=== PATIENT | female | born 1960 | race Caucasian/White ===

== ENCOUNTER 2017-03-19 08:30 | Emergency (ER) | payer OTHER ==
[~2017-03-19] VITALS: Wt 82.0 kg
[2017-03-19] MEDS ORDERED: HYDROCODONE/APAP (5/325) TAB PO ONE (09:00)
--- NOTE | 2017-03-19 09:23 | ERD ---
ER Documentation Chief Complaint Date/Time DATE: 03/19/17 TIME: 09:20 Chief Complaint FEVER, HEADACHE, BODYACHES, BACK PAIN HPI This a 56-year-old female who presents the emergency department today with her grandson complaining of headache for "a long time". States she has a history of stroke 20 years ago. States that she occasionally takes propanolol for pain however it is not helping. States the pain is in the back of her head. States she has some dizziness. Denies any blurred vision, nausea or vomiting. She also has some low back pain, left shoulder pain and left knee pain. States she has pain with ambulation. States that she fell 2 months ago and has had shoulder pain since that time. Denies any fevers or chills, dysuria, loss of bowel or bladder control. ROS All systems reviewed and are negative except as per history of present illness. Medications Home Meds Active Scripts Naproxen* (Naprosyn*) 500 Mg Tablet, 500 MG PO BID Y for PAIN AND/OR INFLAMMATION, #30 TAB Prov:MARGARITO GLASGOW PA-C 03/19/17 Tramadol HCl (Tramadol HCl) 50 Mg Tablet, 50 MG PO Q4 Y for PAIN, #20 TAB Prov:MARGARITO GLASGOW PA-C 03/19/17 Cephalexin* (Keflex*) 500 Mg Capsule, 500 MG PO QID for 7 Days, CAP Prov:MARGARITO GLASGOW PA-C 03/19/17 Allergies Allergies: Coded Allergies: No Known Allergy (Unverified , 06/02/14) PMhx/Soc History of Surgery: No Anesthesia Reaction: No Hx Neurological Disorder: No Hx Cardiac Disorders: No Hx Psychiatric Problems: No Hx Miscellaneous Medical Probl: Yes Hx Alcohol Use: No Hx Substance Use: No Hx Tobacco Use: No Physical Exam Vitals Vital Signs Date Time Temp Pulse Resp B/P Pulse Ox O2 Delivery O2 Flow Rate FiO2 03/19/17 08:35 99.9 93 18 113/64 98 Physical Exam Const: Obese, no acute distress Head: Atraumatic Eyes: Normal Conjunctiva. PERRLA. EOM intact ENT: Normal External Ears, Nose and Mouth. Neck: Full range of motion..~ No meningismus. Resp: Clear to auscultation bilaterally Cardio: Regular rate and rhythm, no murmurs Abd: Soft, non tender, non distended. Normal bowel sounds Skin: No petechiae or rashes Back: Lumbar spine midline tenderness. Unable to assess range of motion secondary to pain. Ext: Left knee with no obvious deformity. No effusion. No ecchymosis. Full active range of motion. Pain with ambulation. Pulses 2+. Distal neurovascularly intact. Left shoulder with no obvious deformity. No effusion. No ecchymosis. Pain with full active range of motion. Pulses 2+. Distal neurovascularly and Neur: Awake and alert. Cranial nerves II through XII intact. No gait ataxia peer Psych: Normal Mood and Affect Results 24 hrs Laboratory Tests Test 03/19/17 10:48 Bedside Urine pH (LAB) 5.5 Bedside Urine Protein (LAB) 1+ Bedside Urine Glucose (UA) Negative Bedside Urine Ketones (LAB) Negative Bedside Urine Blood Trace-intact Bedside Urine Nitrite (LAB) Negative Bedside Urine Leukocyte Esterase (L 2+ Current Medications Medications (Trade) Dose Ordered Sig/Sreekanth Route PRN Reason Start Time Stop Time Status Last Admin Dose Admin Acetaminophen/ Hydrocodone Bitart ([place] (5/325)) 1 tab ONCE ONCE PO 03/19/17 09:00 03/19/17 09:03 DC 03/19/17 09:13 Ketorolac Tromethamine (Toradol) 30 mg ONCE STAT IM 03/19/17 10:25 03/19/17 10:27 DC 03/19/17 10:39 DIAGNOSTIC IMAGING REPORT Patient: QUYEN ELIZALDE : 1960 Age: 56 Sex: F [id number] DOS: 03/19/17 0000 Ordering MD: MARGARITO GLASGOW PA-C Location: [facility] Room/Bed: PROCEDURE: CT head without intravenous contrast CLINICAL INDICATION: Headache. Concern for stroke. COMPARISON: None relevant listed. TECHNIQUE: Axial CT images from skull base to vertex with coronal and sagittal reformats. DOSE: The estimated administered radiation dose was CTDI vol = 44 mGy. DLP = 630 mGy-cm. One or more of the following dose reduction techniques were used: automated exposure control, adjustment of the mA and/or kV according to patient size, or use of iterative reconstruction. FINDINGS: Parenchyma: No acute hemorrhage, large territorial infarction, or mass. Ventricles: No ventriculomegaly or ventricular effacement. Extra-axial spaces: No herniation or midline shift. Paranasal sinuses: Mild paranasal sinus mucosal thickening. Mastoids and middle ears: Clear. Visualized orbits: Normal. Vessels: No calcified atherosclerotic arterial plaque identified. Bones: Normal. Extracranial soft tissues: Normal. Additional comment: None. IMPRESSION: No acute intracranial abnormality. RPTAT: PP Real Marte Physician Date Time Electronically viewed and signed by Real Marte Physician on 03/19/2017 09: 49 LG/ CC: MARGARITO GLASGOW PA-C DIAGNOSTIC IMAGING REPORT Patient: QUYEN ELIZALDE : 1960 Age: 56 Sex: F MR #: [id number] DOS: 03/19/17 0000 Ordering MD: MARGARITO GLASGOW PA-C Location: [facility] Room/Bed: PROCEDURE: Left knee x-ray CLINICAL INDICATION: Fall, pain TECHNIQUE: AP, oblique and cross-table lateral views of the left knee were obtained. COMPARISON: None FINDINGS: There is normal mineralization. No acute fracture or dislocation is seen. The joint spaces are normal. There is no joint effusion. There is no significant soft tissue swelling. IMPRESSION: No acute osseous abnormality. Physician Aldair Date Time Electronically viewed and signed by Physician Aldair on 03/19/2017 10: 15 CS/ CC: MARGARITO GLASGOW PA-C DIAGNOSTIC IMAGING REPORT Patient: QUYEN ELIZALDE : 1960 Age: 56 Sex: F MR #: [id number] DOS: 03/19/17 0000 Ordering MD: MARGARITO GLASGOW PA-C Location: [facility] Room/Bed: PROCEDURE: XR Lumbar Spine. CLINICAL INDICATION: fall 2 mos ago. pain TECHNIQUE: AP, and lateral views of the lumbar spine were obtained. COMPARISON: No prior studies are available for comparison. FINDINGS: There is normal vertebral mineralization. No fracture or subluxation is seen. Mild L3-4, L4-5 disk height loss and small anterior osteophytes are seen. There is mild L4-5 anterolisthesis. The posterior elements are unremarkable. The soft tissues appear normal. IMPRESSION: No evidence of fracture. Mild degenerative changes. Physician Aldair Date Time Electronically viewed and signed by Cal Ayala Physician on 03/19/2017 10: 18 CS/ CC: MARGARITO GLASGOW PA-C DIAGNOSTIC IMAGING REPORT Patient: QUYEN ELIZALDE : 1960 Age: 56 Sex: F MR #: [id number] DOS: 03/19/17 0000 Ordering MD: MARGARITO GLASGOW PA-C Location: [facility] Room/Bed: PROCEDURE: XR left shoulder. CLINICAL INDICATION: fall 2 mos ago. pain TECHNIQUE: AP, Internal and external rotation, transscapular views of the left shoulder were performed. COMPARISON: None. FINDINGS: There is normal osseous mineralization and alignment. No acute fracture or osseous lesion is identified. There are normal joints without evidence of arthritis or dislocation. The soft tissues are unremarkable. IMPRESSION: Unremarkable left shoulder. < Physician Aldair Date Time Electronically viewed and signed by Cal Ayala Physician on 03/19/2017 10: 18 CS/ CC: MARGARITO GLASGOW PA-C Procedures/MDM This 56-year-old female who presents the emergency department today complaining of multiple areas of pain for "a long time" and is gotten worse over the past couple of days. Given patient's history of stroke and complaints of headache and dizziness I did obtain a head CT. UA shows 2+ leukocyte esterase. Head CT noncontrast shows no acute intracranial abnormality. Low suspicion for acute hemorrhage, abscess, meningitis, mass Patient was also complaining of low back pain, knee pain and left shoulder pain and given that she was having pain with ambulation and she fell approximately 6 weeks ago I did obtain images. Per the radiology report images of the left shoulder are unremarkable Images of the lumbar spine show mild L3 and L4 and L4 and L5 disc height loss and small anterior osteophyte seen. There is mild L4 and L5 anterolisthesis. There are no evidence of fracture. Images of the left knee are unremarkable Patient was given [place] here in the emergency department and pain improved however she stated she did still have a slight headache and dizziness. Patient was given Toradol and meclizine. Patient symptoms at this time is consistent with diffuse body pain. Her back pain may be related to arthritis. Her knee pain and shoulder pain are of uncertain etiology. Patient also has 2+ leukocyte esterase in her urine and this may also be the cause of her headache and dizziness. I have explained this to her. Patient will be given a prescription for Keflex, short course of tramadol and Naprosyn for home. She was instructed to follow-up with her primary care doctor for referral to ncqa specialist or manipulative therapy specialist given the diffuse nature of pain in all of her joints. Patient understood At this time the patient is stable for discharge and outpatient management. Patient should follow up with their PCP in the next 1-2 days. They may return to the emergency department sooner for any persistent or worsening of symptoms. Patient understood and agreed with the plan. Departure Diagnosis: Primary Impression: Pain Additional Impression: UTI (urinary tract infection) Urinary tract infection type: site unspecified Hematuria presence: without hematuria Qualified Code: N39.0 - Urinary tract infection without hematuria, site unspecified Condition: Fair MARGARITO GLASGOW PA-C Mar 19, 2017 09:23
--- NOTE | 2017-03-19 09:50 | RADRPT ---
PROCEDURE: CT head without intravenous contrast CLINICAL INDICATION: Headache. Concern for stroke. COMPARISON: None relevant listed. TECHNIQUE: Axial CT images from skull base to vertex with coronal and sagittal reformats. DOSE: The estimated administered radiation dose was CTDI vol = 44 mGy. DLP = 630 mGy-cm. One or mor e of the following dose reduction techniques were used: automated exposure control, adjustment of th e mA and/or kV according to patient size, or use of iterative reconstruction. FINDINGS: Parenchyma: No acute hemorrhage, large territorial infarction, or mass. Ventricles: No ventriculomegaly or ventricular effacement. Extra-axial spaces: No herniation or midline shift. Paranasal sinuses: Mild paranasal sinus mucosal thickening. Mastoids and middle ears: Clear. Visualized orbits: Normal. Vessels: No calcified atherosclerotic arterial plaque identified. Bones: Normal. Extracranial soft tissues: Normal. Additional comment: None. IMPRESSION: No acute intracranial abnormality. RPTAT: PP Physician Antoine Date Time Electronically viewed and signed by Physician Antoine on 03/19/2017 09:49 LG/
--- NOTE | 2017-03-19 10:16 | RADRPT ---
PROCEDURE: Left knee x-ray CLINICAL INDICATION: Fall, pain TECHNIQUE: AP, oblique and cross-table lateral views of the left knee were obtained. COMPARISON: None FINDINGS: There is normal mineralization. No acute fracture or dislocation is seen. The joint spaces are normal. There is no joint effusion. There is no significant soft tissue swelling. IMPRESSION: No acute osseous abnormality. Physician Aldair Date Time Electronically viewed and signed by Physician Aldair on 03/19/2017 10:15 CS/
--- NOTE | 2017-03-19 10:18 | RADRPT ---
PROCEDURE: XR Lumbar Spine. CLINICAL INDICATION: fall 2 mos ago. pain TECHNIQUE: AP, and lateral views of the lumbar spine were obtained. COMPARISON: No prior studies are available for comparison. FINDINGS: There is normal vertebral mineralization. No fracture or subluxation is seen. Mild L3-4, L4-5 disk height loss and small anterior osteophytes are seen. There is mild L4-5 anterolisthesis. The posterior elements are unremarkable. The soft tissues appear normal. IMPRESSION: No evidence of fracture. Mild degenerative changes. Physician Aldair Date Time Electronically viewed and signed by Physician Aldair on 03/19/2017 10:18 CS/
--- NOTE | 2017-03-19 10:19 | RADRPT ---
PROCEDURE: XR left shoulder. CLINICAL INDICATION: fall 2 mos ago. pain TECHNIQUE: AP, Internal and external rotation, transscapular views of the left shoulder were perfor med. COMPARISON: None. FINDINGS: There is normal osseous mineralization and alignment. No acute fracture or osseous lesion is identified. There are normal joints without evidence of arthritis or dislocation. The soft tissues are unremarkable. IMPRESSION: Unremarkable left shoulder. < Physician Aldair Date Time Electronically viewed and signed by Physician Aldair on 03/19/2017 10:18 CS/
[2017-03-19] MEDS ORDERED: KETOROLAC 30 MG INJ IM STA (10:25)
[2017-03-19 10:42] LABS: URINE BLOOD (Dip) POC Trace-intact (NEGATIVE)
[2017-03-19] MEDS ORDERED: CEPH-443 PO (11:00)
[2017-03-19] MEDS ORDERED: TRAM50TA2 PO (11:01)
[2017-03-19] MEDS ORDERED: NAPR-260 PO (11:01)
[2017-03-19 11:17] VITALS: BP 90/50; PULSE 74; RESP 20; TEMP 98.3
== END 2017-03-19 11:26 | disposition home or self-care (01) ==
LOC: FTE 08:30
DX: R51 Headache (principal); N39.0 Urinary tract infection, site not specified
CPT/HCPCS: 70450; 72100; 73030; 73562; 81003; 96372; J1885; Z7502; Z7610